=== PATIENT | male | born 1995 | race American Indian/Alaskan Native ===

== ENCOUNTER 2017-01-02 09:46 | Emergency (ER) | payer SELFPAY ==
[2017-01-02 10:51] VITALS: BP 121/75
--- NOTE | 2017-01-02 12:44 | Emergency Department Report ---
ED Male HPI - General Chief complaint: Urogenital-Male Stated complaint: URINATION PAIN Time Seen by Provider: 01/02/17 12:19 Source: patient Mode of arrival: Ambulatory Limitations: No Limitations - History of Present Illness Initial comments: 21-year-old -[place] male comes in for complaint of penile discharge for 2-3 days as well as dysuria. Patient reports that he has stepped out of his relationship 3 weeks ago and now is having penile discharge and burning when he urinates. He denies any fever chills no nausea no vomiting. He did inform his girlfriend that he did step out of the relationship. MD Complaint: penile discharge, dysuria - Related Data Previous Rx's Medication Instructions Recorded Last Taken Type Ciprofloxacin HCl [Ciprofloxacin 500 mg PO Q12HR #6 tab 01/02/17 Unknown Rx TAB] Allergies Allergy/AdvReac Type Severity Reaction Status Date / Time No Known Allergies Allergy Unverified 01/02/17 10:51 ED Review of Systems ROS: Stated complaint: URINATION PAIN Other details as noted in HPI ED Past Medical Hx - Past Medical History Previous Medical History?: No - Surgical History Past Surgical History?: No - Social History Smoking Status: Light Tobacco Smoker Substance Use Type: Alcohol, Marijuana - Medications Home Medications: Home Medications Medication Instructions Recorded Confirmed Last Taken Type Ciprofloxacin HCl [Ciprofloxacin 500 mg PO Q12HR #6 tab 01/02/17 Unknown Rx TAB] ED Physical Exam - General Limitations: No Limitations General appearance: alert, in no apparent distress - Head Head exam: Present: atraumatic - Cardiovascular Cardiovascular Exam: Present: regular rate, normal rhythm, normal heart sounds - GI/Abdominal GI/Abdominal exam: Present: soft. Absent: distended - exam: Present: urethral discharge, circumcision, other (mild lymphadenopathy in the groin area no tenderness). Absent: testicular tenderness, scrotal swelling ED Course Vital Signs 01/02/17 10:48 Temperature 98.0 F Pulse Rate 81 Respiratory 16 Rate Blood Pressure 121/75 O2 Sat by Pulse 100 Oximetry Critical care attestation.: If time is entered above; I have spent that time in minutes in the direct care of this critically ill patient, excluding procedure time. ED Disposition Clinical Impression: Concern about STD in male without diagnosis UTI (urinary tract infection) Qualifiers: Urinary tract infection type: urethritis Qualified Code(s): N34.2 - Other urethritis Disposition: DISCHARGED TO HOME OR SELFCARE Is pt being admited?: No Does the pt Need Aspirin: No Condition: Stable Instructions: Sexually Transmitted Diseases (ED), Safe Sex (ED) Additional Instructions: Complete antibiotics as prescribed. Recommended to be rechecked for STDs in one week. Recommend to have your primary care provider call to medical records to obtain your cultures of her gonorrhea and chlamydia. Recommend for you to sustain from sexual intercourse for one week he is condoms at all times with intercourse. Have your partner checked as well and be treated. Prescriptions: Ciprofloxacin HCl [Ciprofloxacin TAB] 500 mg PO Q12HR #6 tab Referrals: [facility] [Outside] - 3-5 Days [facility] [Outside] - 3-5 Days [facility] [Outside] - 3-5 Days Forms: Work/School Release Form(ED)
[2017-01-02 12:46] LABS: Bacteria,Urine 1+ /HPF (Negative); Bilirubin,Urine NEG (Negative); Blood,Urine NEG (Negative); Ketones,Urine NEG (Negative); Leukocyte Esterase,Urine LG (Negative); Mucus,Urine 3+ /HPF; Nitrite,Urine NEG (Negative); Urobilinogen,Urine < 2.0 mg/dL (<2.0)
[2017-01-02] MEDS ORDERED: XYLOCAINE 1% MPF 5 mL INFILTRATI ONE (13:26)
[2017-01-02] MEDS ORDERED: ROCEPHIN IM ONE (13:26)
[2017-01-02] MEDS ORDERED: ZITHROMAX PO ONE (13:27)
[2017-01-02] MEDS ORDERED: FLAGYL PO ONE (13:28)
== END 2017-01-02 14:06 | disposition home or self-care (01) ==
LOC: ED 09:46
DX: N34.2 Other urethritis (principal); F17.200 Nicotine dependence, unspecified, uncomplicated; F12.10 Cannabis abuse, uncomplicated
CPT/HCPCS: 81001; 87591; 96372; 99283; J0696

== ENCOUNTER 2018-04-07 12:54 | Emergency (ER) | payer SELFPAY ==
[2018-04-07 13:08] VITALS: BP 121/74
[2018-04-07 13:39] LABS: Bacteria,Urine 2+ /HPF (Negative); Bilirubin,Urine NEG (Negative); Blood,Urine NEG (Negative); Color,Urine Yellow (Yellow); Mucus,Urine 3+ /HPF
[2018-04-07] MEDS ORDERED: ROCEPHIN IM ONE (14:20)
[2018-04-07] MEDS ORDERED: ZITHROMAX PO ONE (14:20)
[2018-04-07] MEDS ORDERED: XYLOCAINE 1% MPF 5 mL INFILTRATI ONE (14:20)
--- NOTE | 2018-04-07 14:23 | Emergency Department Report ---
HPI - General Chief Complaint: Urogenital-Male Time Seen by Provider: 04/07/18 14:16 - HPI HPI: 22-year-old male presents to the emergency department with complaint of some burning with urination and discharge seen from the penis. He denies any lesions on the penis or the scrotum. He has a history of both gonorrhea and Chlamydia in the past. He says he has not been sexually active" a minute" but he is otherwise sexually active and does not always use protection. He denies any fever, abdominal pain, nausea or vomiting. No recent travel or sick contacts at home. He has not taken anything for his symptoms prior to presentation. ED Past Medical Hx - Past Medical History Previous Medical History?: No - Surgical History Past Surgical History?: No - Social History Smoking Status: Current Some Day Smoker Substance Use Type: Alcohol, Marijuana - Medications Home Medications: Home Medications Medication Instructions Recorded Confirmed Last Taken Type Ciprofloxacin HCl [Ciprofloxacin 500 mg PO Q12HR #6 tab 01/02/17 Unknown Rx TAB] ED Review of Systems ROS: Stated complaint: STD CHECK Other details as noted in HPI Comment: All other systems reviewed and negative Constitutional: denies: chills, fever Eyes: denies: eye pain, eye discharge, vision change ENT: denies: ear pain, throat pain Respiratory: denies: cough, shortness of breath, wheezing Cardiovascular: denies: chest pain, palpitations Gastrointestinal: denies: abdominal pain, nausea, diarrhea Genitourinary: dysuria, discharge Musculoskeletal: denies: back pain, joint swelling, arthralgia Skin: denies: rash, lesions Neurological: denies: headache, weakness, paresthesias Physical Exam - Physical Exam Vital Signs: Vital Signs 04/07/18 13:04 Temperature 97.6 F Pulse Rate 70 Respiratory 18 Rate Blood Pressure 121/74 O2 Sat by Pulse 98 Oximetry Physical Exam: GENERAL: The patient is well-developed well-nourished. HENT: Normocephalic. Atraumatic. Patient has moist mucous membranes. EYES: Extraocular motions are intact. NECK: Supple. Trachea is midline. CHEST/LUNGS: Clear to auscultation. There is no respiratory distress noted. HEART/CARDIOVASCULAR: Regular. There is no tachycardia. There is no murmur. ABDOMEN: There is no abdominal distention. SKIN: Skin is warm and dry. NEURO: The patient is awake, alert, and oriented. The patient is cooperative. The patient has normal speech. MUSCULOSKELETAL: There is no tenderness or deformity. There is no limitation range of motion. There is no evidence of acute injury. : Deferred ED Course Vital Signs 04/07/18 13:04 Temperature 97.6 F Pulse Rate 70 Respiratory 18 Rate Blood Pressure 121/74 O2 Sat by Pulse 98 Oximetry ED Medical Decision Making - Medical Decision Making I was going to prescribe the patient azithromycin to be filled at an outpatient pharmacy but the patient says that he does not have the money to get this filled and requests being treated empirically in the emergency department. He is aware that this will cause him to have anyone higher bill for these medications but still would like to be treated in the emergency Department. He will receive Rocephin and azithromycin. We had a discussion about STI prevention. Vital signs stable including being afebrile. He has 14 WBCs in the urine that is probably from nonspecific urethritis. - Differential Diagnosis UTI, gonorrhea, chlamydia Critical Care Time: No Critical care attestation.: If time is entered above; I have spent that time in minutes in the direct care of this critically ill patient, excluding procedure time. ED Disposition Clinical Impression: Urethritis Disposition: DC-01 TO HOME OR SELFCARE Is pt being admited?: No Condition: Stable Instructions: Nonspecific Urethritis in Men (ED) Additional Instructions: Please follow up with a primary care physician. You can also follow-up with the health department for any further evaluation for possible exposure to STD. Return to the emergency Department with any worsening of your symptoms or any acute distress. Referrals: PRIMARY CARE [Primary Care Provider] - 3-5 Days [facility] [Outside] - 3-5 Days [facility] [Outside] - 3-5 Days Forms: STI Treatment and Prevention Time of Disposition: 14:22
== END 2018-04-07 15:23 | disposition home or self-care (01) ==
LOC: ED 12:54
DX: N34.2 Other urethritis (principal); F17.200 Nicotine dependence, unspecified, uncomplicated
CPT/HCPCS: 81001; 96372; 99283; J0696

== ENCOUNTER 2019-04-27 18:23 | Emergency (ER) | payer SELFPAY ==
--- NOTE | 2019-04-27 19:12 | Emergency Department Report ---
Chief Complaint: Urogenital-Male Stated Complaint: STD CHECK Time Seen by Provider: 04/27/19 19:06 - HPI History of Present Illness: This is a 23-year-old male nontoxic, well in appearance with no signs of distress presents to the ED for STD check. Patient stated that his partner called and said has STD. Patient stated he is asymptotic. Denies any penile discharge, testicular pain, or swelling. Patient denies any urinary symptoms. Patient denies any fever, chills, headache, nausea, vomiting, chest pain or shortness of breathe. denies any other symptoms or complaints. Denies any allergies or PMH. - Exam Physical Exam: No abdominal pain. No complaints or symptoms. MSE screening note: Focused history and physical exam performed. Due to findings the following was ordered: ED Medical Decision Making - Medical Decision Making This is a 23-year-old male that presents with nonmedical emergency complaint. Patient is just requested for a STD test. Patient denies any symptoms. Patient was approached by registration for insurance or copay but patient refused. I gave patient many different referrals to follow-up with STD concerns. Patient was instructed to Follow-up with a primary care doctor in 3-5 days or if symptoms worsen and continue return to emergency room as soon as possible. At time of discharge, the patient does not seem toxic or ill in appearance. No acute signs of distress noted. Patient agrees to discharge treatment plan of care. No further questions noted by the patient. ED Disposition for MSE Clinical Impression: Possible exposure to STD Disposition: Z-07 MED SCREENING EXAM-LEFT Is pt being admited?: No Does the pt Need Aspirin: No Condition: Stable Instructions: Safe Sex (ED) Additional Instructions: Follow-up with a primary care doctor and referrals that was given to you in the ED in 3-5 days or if symptoms worsen and continue return to emergency room as soon as possible. Referrals: PRIMARY MD NATALIA [Referring] - 3-5 Days MARY QUESADA MD [Staff Physician] - 3-5 Days [facility] [Outside] - 3-5 Days [facility] [Outside] - 3-5 Days
[2019-04-27 19:16] VITALS: BP 108/66
== END 2019-04-27 19:45 | disposition left against medical advice (07) ==
LOC: ED 18:23
DX: Z20.2 Contact with and (suspected) exposure to infections with a predominantly sexual mode of transmission (principal)
CPT/HCPCS: 99282